=== PATIENT | male | born 1990 | race Caucasian/White ===

== ENCOUNTER 2017-02-26 11:18 | Inpatient (IN) ==
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
--- NOTE | 2017-02-26 11:35 | Emergency Department Note ---
START Narrative - START START: I examined this patient and my medical decision-making was reviewed with the Resident Physician. I agree with the documented findings, disposition and treatment plan as described except to the extent set forth below. ED attending note: Patient seen with emergency medicine resident Dr. Garland. We independently evaluated the patient and had [id number] contact with the patient. Please see a copy of his note for details of the history and physical, evaluation, management and disposition of this emergency Department patient. Briefly: A 26-year-old male history of depression and suicidal ideations in the past with prior admissions presents with suicidal ideations and plan to cut his arm. Patient's physical examination is otherwise benign. Patient will undergo medical clearance and then be evaluated by mental health services for evaluation management and disposition. Disposition pending, patient stable
[2017-02-26 11:55] LABS: Basophils % 0.5 %; Eosinophils # 0.1 K/mcL (0.0-0.6); Eosinophils % 1.9 %; Hematocrit 43.5 % (37.5-50.1); Hemoglobin 14.1 g/dL (12.9-16.9); Immature Granulocytes % 0.3 % (0-4); Lymphocytes # 1.2 K/mcL (0.6-4.6); Lymphocytes % 18.9 %; Mean Corpuscular HGB Conc 32.4 g/dL (31.6-35.5); Mean Corpuscular Hemoglobin 29.4 pg (28.0-33.3); Mean Corpuscular Volume 90.8 fL (83.0-100.0); Mean Platelet Volume 10.2 fL (9.4-12.4); Monocytes # 0.7 K/mcL (0.0-1.3); Monocytes % 10.6 %; Neutrophils # 4.3 K/mcL (1.6-8.9); Platelet Count 282 K/mcL (140-400); Red Blood Count 4.79 M/mcL (4.19-5.50); Red Cell Distribution Width 12.2 % (11.5-14.5); Segmented Neutrophils % 67.8 %
[2017-02-26 12:07] LABS: BUN/Creatinine Ratio 10 (6-26); Blood Urea Nitrogen 9 mg/dL (8-26); Calcium 8.9 mg/dL (8.6-10.8); Carbon Dioxide 27 mEq/L (19-29); Chloride 104 mEq/L (98-109); Glucose 97 mg/dL (70-99); Osmolality,Calculated 287 (280-300); Potassium 4.1 mEq/L (3.5-4.5); Sodium 139 mEq/L (136-145); eGFR For African Americans > 60 (> 60); eGFR For Non-African Americans > 60 (> 60)
[2017-02-26 12:09] LABS: Acetaminophen < 1.0 mcg/mL (10-30); Ethanol < 10 mg/dL (0-10); Salicylate < 5.0 mg/dL (15-30)
[2017-02-26] MEDS ORDERED: Neosporin OINT 1 APPL PACKET TP ONE (12:23)
[2017-02-26 12:40] LABS: Bilirubin,Urine Negative (Negative); Blood,Urine Negative (Negative); Clarity,Urine Clear (Clear); Color,Urine Yellow (Yellow); Glucose,Urine (UA) Normal (Normal); Ketones,Urine Negative (Negative); Leukocyte Esterase,Urine Negative (Negative); Nitrite,Urine Negative (Negative); Protein,Urine Negative (Neg-Trace); Specific Gravity,Urine 1.024 (1.010-1.025); Urobilinogen,Urine Normal (Normal)
[2017-02-26 12:46] LABS: Amphetamine Screen,Urine Negative ng/mL (Cutoff=1000); Barbiturate Screen,Urine Negative ng/mL (Cutoff=200); Benzodiazepines Screen,Urine Negative ng/mL (Cutoff=200); Cannabinoid Screen,Urine Negative ng/mL (Cutoff = 50); Cocaine Screen,Urine Negative ng/mL (Cutoff= 300); Opiate Screen,Urine Positive ng/mL (Cutoff=300); Phencyclidine Screen,Urine Negative ng/mL (Cutoff=25)
[2017-02-26] MEDS ORDERED: Tdap (Boostrix) Vaccine 0.5 ML SYRINGE IM ONE (14:51)
[2017-02-26] MEDS ORDERED: Haloperidol Lactate 5 MG/ML VIAL IM PRN (15:31)
[2017-02-26] MEDS ORDERED: Mag Hydrox/Al Hydrox/Simeth 30 ML UDC PO PRN (15:31)
[2017-02-26] MEDS ORDERED: *HR* LORazepam 1 MG TABLET PO PRN (15:31)
[2017-02-26] MEDS ORDERED: *HR* LORazepam 2 MG/ML VIAL IM PRN (15:31)
[2017-02-26] MEDS ORDERED: MOM Conc 10 ML UD.LIQ PO PRN (15:31)
[2017-02-26] MEDS ORDERED: Acetaminophen 325 MG TABLET PO PRN (15:31)
[2017-02-26] MEDS: Nicotine 21 MG PATCH.TD24 TD SCH (18:27)
[2017-02-26] MEDS: traZODone 50 MG TABLET PO PRN (20:08)
[2017-02-26] MEDS: hydrOXYzine pamoate 25 MG CAPSULE PO PRN (21:42)
[2017-02-27] MEDS: Nicotine 21 MG PATCH.TD24 TD SCH (09:24)
--- NOTE | 2017-02-27 10:56 | Psychiatry History & Physical ---
Date of Encounter: 02/27/17 Time of Encounter: 10:30 History of Present Illness Patient Stated Chief Complaint: Suicidal ideation, self mutilating behavior Medicare Admission Attestation: For traditional Medicare patients the provided hospital inpatient services are reasonable and necessary and in the case of services not specified as inpatient -only under 42 CFR 419.22 (n), that they are appropriately provided as inpatient services in accordance 42 CFR 412.3. For Critical Access Hospital the patient may reasonably be expected to be discharged or transferred to a hospital within 96 hours after admission to the Critical Access Hospital. Admitted From: Emergency Dept History of Present Illness: Mr. Ulrich is a 26 year old male admitted from the emergency department for evaluation treatment SUICIDAL ideation and self mutilating behavior. Patient stressed out by losing his job 4 month ago, kicked out by his girlfriend and also he is on probation for criminal charges and participated in a rehabilitation program for substance abuse. UDS was positive for opiates and benzodiazepine non of these medication were prescribed. Patient reports anxiety irritability and depression. He was hospitalized at age 18 for suicide attempt. He is unemployed at this time and live with his mother. He endorsed suicidal ideation with plan to overdose on medications. Past Med Surg Social Fam HX - Past Medical History Medical history: no medical history, other - Past Psychiatric History Psychiatric history: Reports: anxiety, depression, prior suicide attempt, previous psychiatric hospitalization - Past Surgical History Surgical History: no surgical history - Social History Smoking Status: Never smoker Smokeless Tobacco Status: No Alcohol use: none Drug use: none - Family History Mother Adopted: [place]: [place] Family Member Ethnicity: Non- Living Status: Still Living Hx Family Cardiac Disorders: No Hx Family Respiratory Disorders: No Hx Family Cancer: No Hx Family GI Disorders: No Hx Family Genitourinary Disorders: No Hx Family Endocrine Disorder: No Hx Family Musculoskeletal Disorders: No Hx Family Neuromuscular Disorders: No Hx Family Neurologic Disorders: No Hx Family HEENT Disorders: No Hx Family Autoimmune Disorders: No Hx Family Reproductive Disorders: No Hx Family Psychosocial Disorders: No Hx Family Medical Disorders: No Medications & Allergies No Known Home Drugs 02/26/17 [History] 3 Allergy/AdvReac Type Severity Reaction Status Date / Time No Known Allergies Allergy Verified 01/30/17 00:47 Review of Systems Psychiatric: Reports: anxiety, suicidal ideation Mental Status Exam Patient orientation: Yes Person, Yes Time, Yes Place Level of alertness: Alert Patient appearance: Appropriate, Well Groomed Behavior: calm, cooperative, anxious Psychomotor activity: Normal Eye contact: Minimal Contact Mood description: Depressed, Anxious Affect description: congruent with mood, constricted Speech pattern: Normal rate, Normal rhythm, Normal tone Speech volume: Normal Thought process: Linear, Goal Oriented Thought content: Yes Suicidal ideation, No Homicidal ideation, No Overt delusions Perceptual disturbances: No Auditory hallucinations, No Visual hallucinations Attention span: Capable of Focused Attention Memory description: Grossly Intact Patient reliability: Reliable Historian Intelligence estimate: Average Judgment: Limited Insight: Partial Results - Vital Signs Vital signs: Temp Pulse Resp BP Pulse Ox 97.8 F 80 16 116/73 97 02/27/17 09:00 02/27/17 09:00 02/27/17 09:00 02/27/17 09:00 02/26/17 14:44 - Labs Labs: Laboratory Last Values WBC 6.3 K/mcL (4.3-11.1) 02/26/17 11:46 RBC 4.79 M/mcL (4.19-5.50) 02/26/17 11:46 Hgb 14.1 g/dL (12.9-16.9) 02/26/17 11:46 Hct 43.5 % (37.5-50.1) 02/26/17 11:46 MCV 90.8 fL (83.0-100.0) 02/26/17 11:46 MCH 29.4 pg (28.0-33.3) 02/26/17 11:46 MCHC 32.4 g/dL (31.6-35.5) 02/26/17 11:46 RDW 12.2 % (11.5-14.5) 02/26/17 11:46 Plt Count 282 K/mcL (140-400) 02/26/17 11:46 MPV 10.2 fL (9.4-12.4) 02/26/17 11:46 Immature Gran % 0.3 % (0-4) 02/26/17 11:46 Seg Neutrophils % 67.8 % 02/26/17 11:46 Lymphocytes % 18.9 % 02/26/17 11:46 Monocytes % 10.6 % 02/26/17 11:46 Eosinophils % 1.9 % 02/26/17 11:46 Basophils % 0.5 % 02/26/17 11:46 Neutrophils # 4.3 K/mcL (1.6-8.9) 02/26/17 11:46 Lymphocytes # 1.2 K/mcL (0.6-4.6) 02/26/17 11:46 Monocytes # 0.7 K/mcL (0.0-1.3) 02/26/17 11:46 Eosinophils # 0.1 K/mcL (0.0-0.6) 02/26/17 11:46 Basophils # 0.0 K/mcL (0.0-0.2) 02/26/17 11:46 Sodium 139 mEq/L (136-145) 02/26/17 11:46 Potassium 4.1 mEq/L (3.5-4.5) 02/26/17 11:46 Chloride 104 mEq/L (98-109) 02/26/17 11:46 Carbon Dioxide 27 mEq/L (19-29) 02/26/17 11:46 BUN 9 mg/dL (8-26) 02/26/17 11:46 Creatinine 0.89 mg/dL (0.72-1.25) 02/26/17 11:46 Est GFR ( Amer) > 60 (> 60) 02/26/17 11:46 Est GFR (Non-Af Amer) > 60 (> 60) 02/26/17 11:46 BUN/Creatinine Ratio 10 (6-26) 02/26/17 11:46 Glucose 97 mg/dL (70-99) 02/26/17 11:46 Calculated Osmolality 287 (280-300) 02/26/17 11:46 Calcium 8.9 mg/dL (8.6-10.8) 02/26/17 11:46 Urine Color Yellow (Yellow) 02/26/17 11:23 Urine Clarity Clear (Clear) 02/26/17 11:23 Urine pH 6.0 pH Units (5.0-8.0) 02/26/17 11:23 Ur Specific [place] 1.024 (1.010-1.025) 02/26/17 11:23 Urine Protein Negative mg/dL (Neg-Trace) 02/26/17 11:23 Urine Glucose (UA) Normal mg/dL (Normal) 02/26/17 11:23 Urine Ketones Negative mg/dL (Negative) 02/26/17 11:23 Urine Blood Negative (Negative) 02/26/17 11:23 Urine Nitrite Negative (Negative) 02/26/17 11:23 Urine Bilirubin Negative (Negative) 02/26/17 11:23 Urine Urobilinogen Normal mg/dL (Normal) 02/26/17 11:23 Ur Leukocyte Esterase Negative (Negative) 02/26/17 11:23 Salicylates < 5.0 mg/dL (15-30) L 02/26/17 11:46 Urine Opiates Screen Positive ng/mL (Qlxgud=736) H 02/26/17 11:23 Acetaminophen < 1.0 mcg/mL (10-30) L 02/26/17 11:46 Ur Barbiturates Screen Negative ng/mL (Imqgyy=101) 02/26/17 11:23 Ur Phencyclidine Scrn Negative ng/mL (Cutoff=25) 02/26/17 11:23 Ur Amphetamines Screen Negative ng/mL (Aiqbzk=1504) 02/26/17 11:23 U Benzodiazepines Scrn Negative ng/mL (Tddmaj=036) 02/26/17 11:23 Urine Cocaine Screen Negative ng/mL (Cutoff= 300) 02/26/17 11:23 U Marijuana (THC) Screen Negative ng/mL (Cutoff = 50) 02/26/17 11:23 Ethyl Alcohol < 10 mg/dL (0-10) 02/26/17 11:46 Assessment and Plan (1) Suicidal ideation Current visit: Yes Status: Acute Plan: Admit inpatient for safety and stabilization, Close observation, Suicide Precautions per unit protocol, Encourage participation in unit milieu, Group Therapy, Monitor sleep, Monitor appetite Additional Plan: Citalopram 20 mg daily. Benefits and side effects were discussed with patient is agreeable and will monitor Risks, benefits, side effects, alternatives discussed w/pt: Yes Patient agreeable to treatment: Yes (2) Polysubstance dependence including opioid type drug, episodic abuse Current visit: Yes Status: Acute Plan: Admit inpatient for safety and stabilization, Close observation, Suicide Precautions per unit protocol, Encourage participation in unit milieu, Group Therapy, Monitor sleep, Monitor appetite Risks, benefits, side effects, alternatives discussed w/pt: Yes Patient agreeable to treatment: Yes
[2017-02-27] MEDS: traZODone 50 MG TABLET PO PRN (20:30)
[2017-02-27] MEDS: hydrOXYzine pamoate 25 MG CAPSULE PO PRN (20:30)
[2017-02-28] MEDS: Nicotine 21 MG PATCH.TD24 TD SCH (08:57)
[2017-02-28 09:40] VITALS: BP 103/70
--- NOTE | 2017-02-28 10:31 | Discharge Summary ---
Date of Encounter: 02/28/17 Time of Encounter: 10:29 Diagnosis - Discharge Diagnosis (1) Suicidal ideation Status: Acute (2) Polysubstance dependence including opioid type drug, episodic abuse Status: Acute Medications - Discharge Medications Prescriptions: Citalopram [CeleXA] 20 mg PO DAILY #30 tablet Citalopram [CeleXA] 20 mg PO DAILY #30 tablet 02/28/17 [Rx] 3 Allergy/AdvReac Type Severity Reaction Status Date / Time No Known Allergies Allergy Verified 01/30/17 00:47 Provider Date of admission: 02/26/17 15:31 Primary care physician: PCP NONE Discharging clinician: Buck Diaz Assessment and Plan - Patient/Caregiver Discharge Instructions Activity: resume usual activities as tolerated Diet: regular diet - Follow up Plan Follow up with: [facility] [Outside] - 03/06/17 10:00 am (The above appointment is with Judy No for outpatient mental health and substance abuse counseling services.) Sophia Carr [Advanced Practice Nurse] - 03/28/17 2:30 pm (The above appointment is with Sophia Carr CNP, at Primary [facility]. This appointment is to establish you with a primary care provider. Your needs for medication and/or Vivitrol will be assessed and treated as indicated as well. Please arrive 15 minutes early to complete paperwork. Please bring your insurance card, photo ID and list of current medications to your first appointment. The above appointment(s) reflects first availability. You may contact the office regularly to check for cancellations that may allow you to be seen sooner.) Functional capacity at discharge: independent ambulation Overall status at discharge: Stable Disposition: Home, Self-Care Hospital Course Hospital course: Mr. Ulrich is a 26 year old male admitted from the emergency department depression and suicidal ideation. For details of the admission please see H&P. On the unit patient was placed on suicidal precautions, was started on citalopram 20 mg daily, he tolerated the medication and denied any side effects. He reported improved sleep and decrease anxiety. He participated in group activities. bench worker binding completed his discharge and follow-up plans, she was in contact with his correction officer reformatory. On discharge patient was medically stable, nonsuicidal, tolerating medication was out any side effects and future oriented. His discharge in stable condition. See social work notes for details . - Time Spent with Patient Total time spent providing and/or coordinating discharge services: Less than 30 minutes Quality - Multiple Antipsychotics Patient discharged on 2 or more antipsychotic medications: No Procedures - Procedures Procedures: Medication Management, Crisis Stabilization, Supportive Therapy, Group Therapy, Psychoeducational Therapy Mental Status Exam - Mental Status Exam Patient orientation: Yes Person, Yes Time, Yes Place Level of alertness: Alert Patient appearance: Appropriate, Well Groomed Behavior: calm, cooperative Psychomotor activity: Normal Eye contact: Maintains Eye Contact Mood description: Euthymic/stable Affect description: congruent with mood, full range Speech pattern: Normal rate, Normal rhythm, Normal tone Speech Volume: Normal Thought process: Linear, Goal Oriented Thought Content: No Suicidal ideation, No Homicidal ideation, No Overt delusions Perceptual Disturbances: No Auditory hallucinations, No Visual hallucinations Judgment: Limited Insight: Partial
== END 2017-02-28 12:19 | disposition home or self-care (01) | DRG 754 ==
LOC: EMEROO 11:18 → 1ANU 11:18
PROVIDERS: ADMIT Psychiatry & Neurology Psychiatry; ATTEND Psychiatry & Neurology Psychiatry